=== PATIENT | male | born 1940 | race Caucasian/White ===

== ENCOUNTER 2023-07-23 11:14 | Outpatient (RCR) | payer OTHER, SELFPAY | END 2023-07-23 23:59 | disposition home or self-care (01) | LOC: CRHB 11:14 | PROVIDERS: ATTENDING PHYSICIAN Internal Medicine Cardiovascular Disease; FAMILY PHYSICIAN Family Medicine | DX: I25.10 Atherosclerotic heart disease of native coronary artery without angina pectoris (principal); Z95.1 Presence of aortocoronary bypass graft | CPT/HCPCS: G0422; G0423 ==

== ENCOUNTER 2023-08-04 09:35 | Outpatient (RCR) | payer OTHER, SELFPAY | END 2023-08-04 23:59 | disposition home or self-care (01) | LOC: CRHB 09:35 | PROVIDERS: ATTENDING PHYSICIAN Internal Medicine Cardiovascular Disease; FAMILY PHYSICIAN Family Medicine | DX: I25.10 Atherosclerotic heart disease of native coronary artery without angina pectoris (principal); Z95.1 Presence of aortocoronary bypass graft | CPT/HCPCS: G0422; G0423 ==

== ENCOUNTER 2023-09-19 09:42 | Outpatient (RCR) | payer OTHER, SELFPAY | END 2023-09-19 23:59 | disposition home or self-care (01) | LOC: CRHB 09:42 | PROVIDERS: ATTENDING PHYSICIAN Internal Medicine Cardiovascular Disease; FAMILY PHYSICIAN Family Medicine | DX: I25.10 Atherosclerotic heart disease of native coronary artery without angina pectoris (principal); Z95.1 Presence of aortocoronary bypass graft | CPT/HCPCS: G0422; G0423 ==

== ENCOUNTER 2023-10-06 09:30 | Outpatient (RCR) | payer OTHER, SELFPAY ==
[2023-09-26 09:23] LABS: Glucose - Point of Care 109 mg/dl (70-99)
[2023-09-30 11:34] LABS: HDL Cholesterol 46 mg/dl; LDL Cholesterol, Calculated 26 mg/dl; Total Cholesterol 85 mg/dl (50-199); Triglyceride 69 mg/dl (10-149); Very Low Density Lipoprotein 13 mg/dl (0-30)
== END 2023-10-06 23:59 | disposition home or self-care (01) ==
LOC: CRHB 09:30
PROVIDERS: ATTENDING PHYSICIAN Internal Medicine Cardiovascular Disease; FAMILY PHYSICIAN Family Medicine
DX: Z95.1 Presence of aortocoronary bypass graft (principal); I25.10 Atherosclerotic heart disease of native coronary artery without angina pectoris (principal); Z95.5 Presence of coronary angioplasty implant and graft
CPT/HCPCS: 36415; 80061; 82962; G0422; G0423

== ENCOUNTER → 2024-10-01 11:09 | Outpatient (REF) | payer OTHER, SELFPAY | LOC: HWRAD 11:09 | PROVIDERS: ATTENDING PHYSICIAN Physician Assistant Surgical; FAMILY PHYSICIAN Family Medicine | DX: R10.31 Right lower quadrant pain (principal) | CPT/HCPCS: 73502 ==

== ENCOUNTER → 2024-12-13 09:23 | Outpatient (REF) | payer OTHER, SELFPAY | LOC: HWRAD 09:23 | PROVIDERS: ATTENDING PHYSICIAN Physician Assistant Surgical; FAMILY PHYSICIAN Family Medicine | DX: Z95.0 Presence of cardiac pacemaker (principal) | CPT/HCPCS: 71046 ==

== ENCOUNTER → 2024-12-20 13:26 | Outpatient (REF) | payer OTHER, SELFPAY | LOC: MRI 13:26 | PROVIDERS: ATTENDING PHYSICIAN Physician Assistant Surgical; FAMILY PHYSICIAN Family Medicine | DX: M25.551 Pain in right hip (principal); R10.2 Pelvic and perineal pain | CPT/HCPCS: 72195; 73721; 76014; 76015 ==